=== PATIENT | female | born 1975 ===

== ENCOUNTER 2019-01-01 06:42 | Day surgery (SDC) | payer OTHER ==
[~2019-01-01 06:42] MED LIST: ENALAPRIL MALEAT5 MG PO
[2019-01-01] MEDS ORDERED: Tylenol #3 PO (12:08)
[2019-01-01] MEDS ORDERED: MORGIDOX100 MG PO (12:08)
== END 2019-01-01 15:45 | disposition home or self-care (01) ==
LOC: CIR.AMB 06:42
DX: D25.0 Submucous leiomyoma of uterus (principal); N84.0 Polyp of corpus uteri

== ENCOUNTER 2019-04-01 08:35 | Emergency (ER) | payer OTHER ==
[~2019-04-01] VITALS: Ht 154.9 cm; Wt 58.1 kg
[~2019-04-01 08:35] MED LIST changes: +MORGIDOX100 MG PO; +Tylenol #3 PO
== END 2019-04-01 12:59 | disposition home or self-care (01) ==
LOC: ER 08:35
DX: R21 Rash and other nonspecific skin eruption (principal)

== ENCOUNTER 2020-04-01 08:14 | Outpatient (CLI) | payer OTHER ==
[2020-04-22] MEDS ORDERED: CHILDREN'S ASPI81 MG PO (15:24)
[2020-04-22] MEDS ORDERED: ZESTRIL5 MG PO (15:24)
[2020-04-22] MEDS ORDERED: FOLIC ACID20 MG PO (15:24)
[2020-04-22] MEDS ORDERED: LIPITOR20 MG PO (15:24)
== END 2020-04-01 08:17 | disposition home or self-care (01) ==
LOC: NUCLEAR 08:14
PROVIDERS: ATTEND Internal Medicine
DX: I10 Essential (primary) hypertension (principal); I66.03 Occlusion and stenosis of bilateral middle cerebral arteries

== ENCOUNTER 2020-04-01 09:22 | Outpatient (CLI) | payer OTHER | END 2020-04-01 09:31 | disposition home or self-care (01) | LOC: RX STUDY 09:22 | DX: R10.2 Pelvic and perineal pain (principal) ==

== ENCOUNTER 2020-04-29 09:46 | Day surgery (SDC) | payer OTHER ==
[~2020-04-29 09:46] MED LIST changes: +CHILDREN'S ASPI81 MG PO; +FOLIC ACID20 MG PO; +LIPITOR20 MG PO; +ZESTRIL5 MG PO
== END 2020-04-30 03:00 | disposition home or self-care (01) ==
LOC: CIR.AMB 09:46
PROVIDERS: ATTEND Surgery
DX: K60.3 Anal fistula (principal)

== ENCOUNTER → 2020-08-19 | Day surgery (SDC) | payer OTHER ==
[~2020-08-19] MED LIST changes: +ADULT LOW DOSE81 M1 PO; +PERCOCET 5-3251 EACH PO
== END | disposition home or self-care (01) ==
LOC: ADM 08-12 11:00 → CIR.AMB 07:00
PROVIDERS: ATTEND Surgery
DX: K60.3 Anal fistula (principal); Z20.822 Contact with and (suspected) exposure to COVID-19